=== PATIENT | female | born 1985 | race Two or more races ===

== ENCOUNTER 2018-08-26 14:30 | Emergency (ER) | payer SELFPAY ==
[~2018-08-26] VITALS: Ht 162.6 cm; Wt 52.6 kg
[2018-08-26] MEDS ORDERED: KETOROLAC TROMETHAMINE INJ 30 MG/ML VIAL IV ONE (15:00)
[2018-08-26] MEDS ORDERED: METOCLOPRAMIDE HCL 10 MG/2 ML VIAL IV ONE (15:00)
[2018-08-26] MEDS ORDERED: diphenhydrAMINE HCL 50 MG/ML VIAL IV ONE (15:00)
[2018-08-26] MEDS ORDERED: IV NS 0.9% 1,000 ML BAG IV ONE (15:00)
--- NOTE | 2018-08-26 15:01 | NUR ---
APRIL CLEANING AT BEDSIDE FOR EVAL.
[2018-08-26] MEDS ORDERED: DEXAMETHASONE SOD PHOSPHATE 4 MG/ML VIAL ONE (15:08)
[2018-08-26] MEDS ORDERED: diphenhydrAMINE HCL 50 MG/ML VIAL ONE (15:08)
[2018-08-26] MEDS ORDERED: METOCLOPRAMIDE HCL 10 MG/2 ML VIAL ONE (15:09)
[2018-08-26] MEDS ORDERED: KETOROLAC TROMETHAMINE INJ 30 MG/ML VIAL ONE (15:09)
--- NOTE | 2018-08-26 15:13 | NUR ---
PT ASK TO GO OUT AND MOVE HER CAR.
[2018-08-26] MEDS ORDERED: DEXAMETHASONE SOD PHOSPHATE 4 MG/ML VIAL IV ONE (15:30)
--- NOTE | 2018-08-26 17:01 | NUR ---
Patient discharged to home in stable condition. Written and verbal after care instructions given. Patient verbalizes understanding of instruction.IV removed. Catheter intact and site benign. Pressure and 4x4 applied to site. No bleeding noted.
[2018-08-26 17:02] VITALS: BP 125/87
== END 2018-08-26 17:03 | disposition home or self-care (01) ==
LOC: ER 14:32
DX: R51 Headache (principal); M54.2 Cervicalgia; R11.0 Nausea; Z88.8 Allergy status to other drugs, medicaments and biological substances
CPT/HCPCS: A4606; J1100; J1200; J1885; J2765; J7030; Z7610